=== PATIENT | female | born 1960 | race Caucasian/White ===

== ENCOUNTER 2018-08-09 17:44 | Emergency (ER) | payer BC ==
[~2018-08-09] VITALS: Ht 165.1 cm; Wt 77.1 kg
[2018-08-09 18:08] VITALS: Ht 165.1 cm; Wt 77.1 kg
[2018-08-09 21:57] VITALS: BP 168/84
== END 2018-08-09 21:57 | disposition home or self-care (01) ==
LOC: ED 17:44 → EDBD 17:44 → ED 21:57
DX: H81.10 Benign paroxysmal vertigo, unspecified ear (principal); I10 Essential (primary) hypertension; Z88.6 Allergy status to analgesic agent
CPT/HCPCS: J8597